=== PATIENT | female | born 1955 | race Caucasian/White ===

== ENCOUNTER → 2016-05-03 | Outpatient (CLI) | payer OTHER ==
--- NOTE | 2016-05-03 11:44 | CT ---
EXAM DESCRIPTION: CTA Head (accession [id number]), CTA Neck (accession [id number]) CLINICAL HISTORY: 60 years, Female, I63.9 the patient has mainly right side frontal and temporal headaches. MRI/MRA from another facility suggested possible left internal jugular partial thrombosis and also possible left lacunar infarction with no right-sided abnormalities seen. [place] [facility] MRA is reportedly normal. I do not have the comparison study for review. COMPARISON: TECHNIQUE: Thin-section multi detector CT imaging of the head and neck is performed according to our CTA protocol. Three dimensional and multiplanar reformatted images are created and reviewed as well as the source images. . FINDINGS: Cervical carotids are normal in appearance. Both carotid bifurcations are patent. No plaque formation is observed. There is no hemodynamically significant stenosis. Internal jugular veins unremarkable. Dural venous sinuses unremarkable. I do not detect cortical or white matter infarction of the brain. There is a very tiny area of decreased attenuation on the left in the sublenticular region most consistent with a slightly dilated perivascular space. This is a normal anatomic variant. IMPRESSION: 1. Normal study Electronically signed by: Reahn Quintanilla MD 05/03/2016 11:44 AM [employer] SUPERVISOR
--- NOTE | 2016-05-03 11:44 | CT ---
EXAM DESCRIPTION: CTA Head (accession [id number]), CTA Neck (accession [id number]) CLINICAL HISTORY: 60 years, Female, I63.9 the patient has mainly right side frontal and temporal headaches. MRI/MRA from another facility suggested possible left internal jugular partial thrombosis and also possible left lacunar infarction with no right-sided abnormalities seen. [place] [facility] MRA is reportedly normal. I do not have the comparison study for review. COMPARISON: TECHNIQUE: Thin-section multi detector CT imaging of the head and neck is performed according to our CTA protocol. Three dimensional and multiplanar reformatted images are created and reviewed as well as the source images. . FINDINGS: Cervical carotids are normal in appearance. Both carotid bifurcations are patent. No plaque formation is observed. There is no hemodynamically significant stenosis. Internal jugular veins unremarkable. Dural venous sinuses unremarkable. I do not detect cortical or white matter infarction of the brain. There is a very tiny area of decreased attenuation on the left in the sublenticular region most consistent with a slightly dilated perivascular space. This is a normal anatomic variant. IMPRESSION: 1. Normal study Electronically signed by: Rehan Quintanilla MD 05/03/2016 11:44 AM [employer] TECHNICIAN
== END | disposition home or self-care (01) ==
LOC: CT 09:41
PROVIDERS: ATTEND General Practice
DX: I63.9 Cerebral infarction, unspecified (principal); I82.C19 Acute embolism and thrombosis of unspecified internal jugular vein